=== PATIENT | male | born 1980 | race African-American/Black ===

== ENCOUNTER 2025-01-10 11:51 | Emergency (ER) | payer SELFPAY ==
[~2025-01-10] VITALS: Ht 170.2 cm; Wt 63.0 kg
[2025-01-10 11:53] VITALS: O2SAT 98
[2025-01-10 12:16] VITALS: BP 135/79; PULSE 75; RESP 16; TEMP 36.7; O2SAT 100
[2025-01-10] MEDS ORDERED: GABAPENTIN 300MG CAPSULE PO ONE (14:45)
== END 2025-01-10 16:23 | disposition left against medical advice (07) ==
LOC: ER 11:51
DX: M79.602 Pain in left arm (principal); R20.0 Anesthesia of skin; Z79.899 Other long term (current) drug therapy
CPT/HCPCS: 99282